=== PATIENT | female | born 1970 | race Two or more races ===

== ENCOUNTER 2023-07-16 19:39 | Emergency (ER) | payer OTHER, SELFPAY ==
--- NOTE | 2023-07-16 19:59 | ED.GENADULT ---
HPI - General Adult General Chief complaint: Extremity Injury, Upper Stated complaint: Pain both hands Time Seen by Provider: 07/16/23 23:44 Source: patient, family (daughter), RN notes reviewed, old records reviewed and spanish interpreter/translator Mode of arrival: ambulatory Limitations: language barrier (Patient declined interpreting services) History of Present Illness HPI narrative: 52-year-old female presents for evaluation of bilateral wrist pain that radiates into her hands She reports that they have been getting worse over the last 2 weeks. Patient states that the left side appears to be somewhat worse. She denies any specific trauma She states that she works using her hands frequently Her pain is an 8/10. She has some braces that she bought at a local pharmacy which she reports helps her symptoms Her symptoms seem to be worse at night as well No fevers, chills Related Data Previous Rx's Medication Instructions Recorded tramadol 50 mg tablet 50 mg PO Q6H PRN severe pain 07/17/23 (scale score 7-10) #12 tabs Allergies Allergy/AdvReac Type Severity Reaction Status Date / Time No Known Allergies Allergy Verified 07/16/23 20:00 [No Known Allergies*] Review of Systems Constitutional: Constitutional: Denies chills and Denies fever(s) Musculoskeletal: Musculoskeletal: Reports arthralgias, Denies joint swelling and Reports limited range of motion PMFSH Social History Social History Advance Directives: No Advance Directives Information Provided: Yes Physical Exam ED Vital Signs: Vital Signs - 24 hr 07/16/23 20:00 Temperature 97.3 F Pulse Rate 84 Respiratory Rate 16 Blood Pressure 167/63 H Pulse Oximetry 98 Oxygen Delivery Method Room Air BMI result Body Mass Index 35.3 Const General: healthy appearing, comfortable, no acute distress, alert and awake Nutritional Appearance: well nourished Orientation/consciousness: patient oriented x3 HENMT Head: Yes normocephalic and Yes atraumatic Eyes Eyelids: Yes eyelids normal Conjunctivae: conjunctivae normal Sclerae: sclerae normal Corneas: corneas normal Pupils: Equal, round and reactive pupils present EOM: EOMs intact bilaterally Neck Neck: Yes full ROM Resp Effort & Inspection: normal respiratory effort, able to speak in complete sentences and not labored Skin General skin exam: elasticity normal Neuro General: patient oriented x3 Cranial nerves: Yes Equal, round and reactive pupils present and Yes Bilaterally intact EOM present Cognition (Neuro): normal cognition Extrem Other: Patient has no objective findings to either upper extremity including wrists and hands. No edema, no rashes. Positive Tinel test, positive Phalen's test. Distal sensation and cap refill intact to both upper extremities Course Course Course Narrative: This is an RME: Additional HPI, ROS, PE not included below will be deferred to primary provider. 52 y o female presenting for evaluation of hands b/l x2 weeks. Reports it worsens when she is using her hands to work and is also worse at night. Sleeps with her hands in braces at night. Reporting tingling in the fingertips b/l and in the left wrist she is reporting it is spreading up her forearm, reports difficult to make a fist. [place] [facility] [place] Medical Decision Making [facility] Narrative: Patient's history and exam is consistent with carpal tunnel syndrome. I encouraged the patient to avoid strenuous activity with her hands and fingers. This will be difficult for her as she her hands for income. Will give her 2 days off from work and she will be referred to orthopedic surgeon. Patient will also use conservative management Differential Diagnosis Differential Diagnoses: The differential diagnosis associated with the presentation includes Carpal tunnel syndrome DeQuarvanes tenosynovitis Arthritis Gout Tests considered The following testing was considered but not selected: Considered x-ray imaging of the wrist, however there was no trauma Discharge Plan Discharge Clinical Impression: Bilateral carpal tunnel syndrome Patient Disposition: Home, Self-Care Instructions: Carpal Tunnel Surgery (DC) Additional Instructions: Your physical exam is consistent with carpal tunnel syndrome. This is likely related to your repetitive work at your job Take the next couple of days off to rest and avoid excessive work with her hands You may elevate your arms above your heart while resting Use ibuprofen and/or Tylenol for pain You may use tramadol for more severe, breakthrough pain This may make you sleepy, do not drink alcohol or drive after taking Follow-up with Dr. Nolan, hand surgery Prescriptions: New tramadol 50 mg tablet 50 mg PO Q6H PRN (Reason: severe pain (scale score 7-10)) Qty: 12 0RF Referrals: Edith Nolan MD [Physician] - (carpal tunnel syndrome)
[2023-07-16 20:00] VITALS: BP 167/63; PULSE 84; RESP 16; TEMP 36.3; O2SAT 98; BMI 35.3
[2023-07-17] MEDS: Ketorolac Tromethamine 30 MG/ML VIAL IM (00:13)
== END 2023-07-17 00:17 | disposition home or self-care (01) ==
PROVIDERS: Emergency Provider Internal Medicine
DX: G56.03 Carpal tunnel syndrome, bilateral upper limbs (principal); M79.642 Pain in left hand; M79.641 Pain in right hand
CPT/HCPCS: 96372; 99283; 99284; J1885